=== PATIENT | male | born 1970 | race Caucasian/White ===

== ENCOUNTER 2018-06-29 14:08 | Outpatient (REF) | payer BC, SELFPAY ==
[2018-06-30 01:37] LABS: Abs Immature Grans 0.02 k/cumm (0.0-0.09); Absolute Basophil Count 0.05 k/cumm (0.0-0.2); Absolute Eosinophil Count 0.07 k/cumm (0.0-0.7); Absolute Lymphocyte Count 1.44 k/cumm (1.2-3.4); Absolute Monocyte Count 0.46 k/cumm (0.11-0.7); Absolute Neutrophil Count 3.15 k/cumm (1.2-6.7); Eosinophils % 1.3; HCT 45.3 % (40.0-50.0); HGB 15.4 g/dL (13.5-17.5); Immature Grans % 0.4; Lymphocytes % 27.7; Mean Corpuscular Hemoglobin 30.1 pg (27.0-33.0); Mean Corpuscular Volume 88.6 fL (80-95); Mean Platelet Volume 12.1 fL (8.0-11.0); Monocytes % 8.9; Neutrophils % 60.7; Platelet Count 234 x1000/uL (130-400); RBC 5.11 m/cumm (4.50-6.00); RBC Distribution Width 13.3 % (11.8-14.1); White Blood Cell Count 5.19 k/cumm (4.4-10.8)
[2018-06-30 01:45] LABS: ALT 28 U/L (12-78); AST 11 U/L (15-37); Alkaline Phosphatase 49 U/L (46-116); Anion Gap 4.2 mmol/L (3-11); BUN 11 mg/dL (7-18); Bilirubin, Total 0.9 mg/dL (0.2-1.0); C-Reactive Protein 0.17 mg/dL (0.0-0.3); CO2 29.8 mmol/L (21.0-32.0); CREATININE 0.91 mg/dL (0.70-1.30); Calcium 8.7 mg/dL (8.5-10.1); Chloride 100 mmol/L (98-107); Glucose 80 mg/dL (70-100); Sodium 134 mmol/L (136-145); Total Protein 7.2 g/dL (6.4-8.2)
[2018-06-30 02:05] LABS: Cholesterol 205 mg/dL (50-200); HDL Cholesterol 45 mg/dL (40-60); LDL CHOLESTEROL 152 mg/dL (<100); Triglyceride 78 mg/dL (30-150)
[2018-06-30 02:35] LABS: ESR 3 MM/HR (0-15)
[2018-07-01 09:27] LABS: Cyclic Citrullinated Peptide <2.5 U/mL (<5.0)
[2018-07-01 10:25] LABS: HIV-1/2 Ag & Ab Screen Negative (NEGAT); Hepatitis C Ab w Rflx HCV PCR Negative (NEGAT)
[2018-07-01 11:18] LABS: Hepatitis B Surface Ag Negative (NEGAT)
[2018-07-01 11:56] LABS: HBs Antibody, Quant 6.8 mIU/mL; Hepatitis B Surface Ab Negative
[2018-07-01 13:37] LABS: Rheumatoid Factor <8 IU/mL (<12.5)
[2018-07-01 13:47] LABS: Syphilis Serology (RPR) Negative (Negative)
[2018-07-01 13:53] LABS: ANA Interpretation Negative (NEGAT)
[2018-07-01 15:52] LABS: Chlamydia Result Negative; GC Result Negative; Specimen Description URINE
== END 2018-06-29 14:28 ==
LOC: LBN 14:08
PROVIDERS: PCP Nurse Practitioner Family; Visit Provider Nurse Practitioner Family
DX: Z00.00 Encounter for general adult medical examination without abnormal findings (principal); M25.50 Pain in unspecified joint; Z11.3 Encounter for screening for infections with a predominantly sexual mode of transmission; Z11.59 Encounter for screening for other viral diseases; Z11.4 Encounter for screening for human immunodeficiency virus [HIV]
CPT/HCPCS: 80053; 80061; 83721; 85652; 86200; 86706; 86803; 87340; 87389; 87491; 87591; 85025; 86038; 86140; 86431; 86592

== ENCOUNTER 2020-08-13 08:57 | Outpatient (REF) | payer BC, SELFPAY ==
[2020-08-13 21:37] LABS: Anion Gap 6.8 mmol/L (3-11); BUN 13 mg/dL (7-18); CO2 27.2 mmol/L (21.0-32.0); CREATININE 0.79 mg/dL (0.70-1.30); Calcium 8.8 mg/dL (8.5-10.1); Calculated LDL 159 mg/dL (<100); Chloride 105 mmol/L (98-107); Cholesterol 223 mg/dL (<200); Glucose 93 mg/dL (74-106); HDL Cholesterol 42 mg/dL (40-60); Potassium 4.2 mmol/L (3.5-5.1); Sodium 139 mmol/L (136-145); Triglyceride 114 mg/dL (<150)
[2020-08-14 21:33] LABS: PSA, Screening 1.2 ng/mL (0.0-3.5)
== END 2020-08-13 09:17 ==
LOC: NCHCN 08:57
PROVIDERS: PCP Nurse Practitioner Family; Visit Provider Nurse Practitioner Family
DX: Z00.00 Encounter for general adult medical examination without abnormal findings (principal); Z13.220 Encounter for screening for lipoid disorders; Z12.5 Encounter for screening for malignant neoplasm of prostate; Z13.228 Encounter for screening for other metabolic disorders
CPT/HCPCS: 80048; 80061; 84153

== ENCOUNTER 2021-08-14 11:53 | Outpatient (REF) | payer BC, SELFPAY ==
[2021-08-14 14:32] LABS: ALT 28 U/L (16-63); AST 14 U/L (15-37); Albumin 3.9 g/dL (3.4-5.0); Alkaline Phosphatase 49 U/L (46-116); Anion Gap 8.4 mmol/L (3-11); BUN 13 mg/dL (7-18); Bilirubin, Total 0.9 mg/dL (0.2-1.0); CO2 27.6 mmol/L (21.0-32.0); CREATININE 0.9 mg/dL (0.70-1.30); Calcium 8.7 mg/dL (8.5-10.1); Calculated LDL 142 mg/dL (<100); Chloride 106 mmol/L (98-107); Cholesterol 197 mg/dL (<200); Glucose 92 mg/dL (74-106); HDL Cholesterol 37 mg/dL (40-60); Potassium 4.2 mmol/L (3.5-5.1); Sodium 142 mmol/L (136-145); Total Protein 6.9 g/dL (6.4-8.2); Triglyceride 92 mg/dL (<150)
== END 2021-08-14 11:54 | disposition home or self-care (01) ==
LOC: NCHCN 11:53
PROVIDERS: PCP Nurse Practitioner Family; Visit Provider Nurse Practitioner Family
DX: Z00.00 Encounter for general adult medical examination without abnormal findings (principal); Z13.220 Encounter for screening for lipoid disorders; Z13.228 Encounter for screening for other metabolic disorders
CPT/HCPCS: 80053; 80061

== ENCOUNTER 2022-08-17 08:28 | Outpatient (REF) | payer BC, SELFPAY ==
[2022-08-17 14:50] LABS: ALT 29 U/L (16-63); AST 21 U/L (15-37); Albumin 3.9 g/dL (3.4-5.0); Alkaline Phosphatase 48 U/L (46-116); Anion Gap 6.9 mmol/L (3-11); BUN 13 mg/dL (7-18); CO2 29.1 mmol/L (21.0-32.0); CREATININE 0.9 mg/dL (0.70-1.30); Calcium 8.6 mg/dL (8.5-10.1); Calculated LDL 154 mg/dL (<100); Chloride 105 mmol/L (98-107); Cholesterol 214 mg/dL (<200); Estimated GFR 102.12 (mL/min/1.73m2); Glucose 93 mg/dL (74-106); HDL Cholesterol 42 mg/dL (40-60); Potassium 4.1 mmol/L (3.5-5.1); Sodium 141 mmol/L (136-145); Total Protein 7.1 g/dL (6.4-8.2); Triglyceride 93 mg/dL (<150)
[2022-08-18 21:40] LABS: PSA, Screening 1.3 ng/mL (<=3.5)
== END 2022-08-17 08:29 | disposition home or self-care (01) ==
LOC: NCHCN 08:28
PROVIDERS: PCP Nurse Practitioner Family; Visit Provider Nurse Practitioner Family
DX: E78.5 Hyperlipidemia, unspecified (principal); Z00.00 Encounter for general adult medical examination without abnormal findings; Z12.5 Encounter for screening for malignant neoplasm of prostate
CPT/HCPCS: 80053; 80061; 84153

== ENCOUNTER 2022-09-09 19:16 | Outpatient (REF) | payer BC, SELFPAY ==
[2022-09-11 11:23] LABS: COVID-19 RT-PCR UVMMC Result Positive (Negative)
== END 2022-09-09 19:17 | disposition home or self-care (01) ==
LOC: NCHCN 19:16
PROVIDERS: PCP Nurse Practitioner Family; Visit Provider Nurse Practitioner Family
DX: U07.1 COVID-19 (principal)
CPT/HCPCS: U0003

== ENCOUNTER 2023-09-29 15:10 | Outpatient (REF) | payer BC, SELFPAY ==
[2023-09-29 21:40] LABS: Calculated LDL 154 mg/dL (<100); Cholesterol 226 mg/dL (<200); HDL Cholesterol 42 mg/dL (40-60); Triglyceride 151 mg/dL (<150)
[2023-09-30 19:27] LABS: PSA, Screening 1.3 ng/mL (<=3.5)
[2023-09-30 20:33] LABS: Hepatitis C Ab w Rflx HCV PCR Negative (Negative)
[2023-09-30 20:56] LABS: HIV-1/2 Ag & Ab Screen Negative (Negative)
== END 2023-09-29 15:11 | disposition home or self-care (01) ==
LOC: NCHCN 15:10
PROVIDERS: PCP Nurse Practitioner Family; Visit Provider Family Medicine
DX: Z00.00 Encounter for general adult medical examination without abnormal findings (principal); Z13.6 Encounter for screening for cardiovascular disorders; Z12.5 Encounter for screening for malignant neoplasm of prostate; Z11.59 Encounter for screening for other viral diseases; Z11.4 Encounter for screening for human immunodeficiency virus [HIV]
CPT/HCPCS: 80061; 84153; 86803; 87389

== ENCOUNTER 2024-06-12 21:06 | Outpatient (REF) | payer BC, SELFPAY | END 2024-06-12 21:07 | disposition home or self-care (01) | LOC: NCHCN 21:06 | PROVIDERS: PCP Nurse Practitioner Family; Visit Provider Family Medicine | DX: L02.91 Cutaneous abscess, unspecified (principal) | CPT/HCPCS: 87070; 87205 ==

== ENCOUNTER 2025-05-22 16:51 | Outpatient (REF) | payer BC, SELFPAY ==
[2025-05-24 12:05] LABS: Chlamydia Result Negative (Negative); GC Result Negative (Negative)
== END 2025-05-22 16:52 | disposition home or self-care (01) ==
LOC: NCHCN 16:51
PROVIDERS: PCP Nurse Practitioner Family; Visit Provider Physician Assistant
DX: N48.89 Other specified disorders of penis (principal)
CPT/HCPCS: 87077; 87491; 87591; 87086; 87186